=== PATIENT | female | born 1995 | race Caucasian/White ===

== ENCOUNTER 2020-07-22 23:58 | Emergency (ER) | payer OTHER ==
[~2020-07-22] VITALS: Ht 162.6 cm; Wt 70.4 kg
[2020-07-23] MEDS ORDERED: NS 1,000 ML IV ONE (00:15)
[2020-07-23 00:44] LABS: BASO # 0.1 10^3/uL (0.0-0.2); BASO % 0.6 % (0.0-1.0); EOS # 0.1 10^3/uL (0.0-0.5); EOS % 1.2 % (0.0-3.0); HEMATOCRIT 38.9 % (36.0-47.0); HEMOGLOBIN 12.8 g/dl (12.0-15.5); LYMPH # 2.7 10^3/uL (1.5-5.0); LYMPH % 29.7 % (24.0-44.0); MEAN CORPUSCULAR HGB CONC 32.9 g/dl (32.0-36.5); MONO # 0.6 10^3/uL (0.0-0.8); NEUTROPHILS # 5.6 10^3/uL (1.5-8.5); NEUTROPHILS % 61.2 % (36.0-66.0); PLATELET COUNT, AUTOMATED 302 10^3/uL (150-450); RED BLOOD COUNT 4.42 10^6/uL (4.00-5.40); WHITE BLOOD COUNT 9.1 10^3/uL (4.0-10.0)
[2020-07-23 00:47] LABS: APPEARANCE, URINE CLEAR (CLEAR); COLOR, URINE YELLOW (YELLOW)
[2020-07-23 00:48] LABS: BACTERIA, URINE AUTO 2+ (NEGATIVE); BILIRUBIN, URINE AUTO NEGATIVE (NEGATIVE); BLOOD, URINE BLOOD 2+ (NEGATIVE); GLUCOSE, URINE (UA) AUTO NEGATIVE (NEGATIVE); KETONE, URINE AUTO NEGATIVE (NEGATIVE); LEUKOCYTE ESTERASE, URINE AUTO NEGATIVE (NEGATIVE); NITRITE, URINE AUTO NEGATIVE (NEGATIVE); PROTEIN, URINE AUTO NEGATIVE (NEGATIVE); RBC, URINE AUTO 78 /HPF (0-3); SPECIFIC GRAVITY URINE AUTO 1.015 (1.002-1.035); SQUAMOUS EPITHELIAL CELL UR AU 0 /HPF (0-6); UROBILINOGEN, URINE AUTO 0.2 mg/dL (0.0-2.0); WBC, URINE AUTO 1 /HPF (0-3)
[2020-07-23 01:14] LABS: BLOOD UREA NITROGEN 12 MG/DL (7-18); CALCIUM LEVEL 8.6 MG/DL (8.5-10.1); CARBON DIOXIDE LEVEL 27 MEQ/L (21-32); CHLORIDE LEVEL 109 MEQ/L (98-107); CREATININE FOR GFR 0.67 MG/DL (0.55-1.30); GLOMERULAR FILTRATION RATE > 60.0 (>60); GLUCOSE, FASTING 83 MG/DL (70-100); HCG, SERUM QUANTITATIVE 306 MIU/ML; POTASSIUM SERUM 3.8 MEQ/L (3.5-5.1); SODIUM LEVEL 139 MEQ/L (136-145)
--- NOTE | 2020-07-23 01:40 | REPVR ---
PROCEDURE INFORMATION: Exam: US First Trimester, Transabdominal and US , Transvaginal Exam date and time: 07/23/2020 1:23 AM Age: 24 years old Clinical indication: Lmp or gestational age (in weeks): 06/14/20; Antepartum complications; Bleeding; ; Additional info: Vag bleed eval for iup TECHNIQUE: Imaging protocol: Real-time transabdominal obstetrical ultrasound of the maternal pelvis and a first trimester , less than 14 weeks 0 days, with image documentation. Transvaginal imaging was used for better evaluation of the fetus and adnexa. COMPARISON: No relevant prior studies available. FINDINGS: Gestation: No intrauterine gestation is visualized. MATERNAL: Uterus: Uterus measures 7.1 x 4.7 x 5.9 cm. Endometrium measures 7 mm. Cervix: Unremarkable. Right adnexa: Right ovary measures 3.4 x 1.7 x 2.6 cm. Right adnexal cystic lesion measuring 1.8 x 1.5 x 1.7 cm. Suspect paraovarian cyst. Left adnexa: Left ovary measures 2.6 x 1.6 x 1.9 cm. Left ovary appears within normal limits. Intraperitoneal space: Trace free fluid within the pelvis. IMPRESSION: 1. No intrauterine gestation is visualized. 2. Right adnexal cystic lesion measuring 1.8 cm, possible paraovarian cyst however ectopic is not excluded. Follow-up recommended. Electronically signed by: Julian Nesbitt On 07/23/2020 01:40:03 AM
[2020-07-23 02:12] LABS: CHLAMYDIA DNA AMPLIFICATION POSITIVE (NEGATIVE); GC DNA AMPLIFICATION POSITIVE (NEGATIVE)
[2020-07-23 02:30] VITALS: BP 127/75
[2020-07-23] MEDS ORDERED: cefTRIAXone SOD 250MG VIAL (J0696 PER 250MG) IM ONE (03:30)
[2020-07-23] MEDS ORDERED: AZITHROMYCIN 250MG TABLET PO ONE (03:30)
[2020-07-23] MEDS ORDERED: LIDOCAINE 1% SDV 5ML VIAL DILUENT ONE (03:30)
== END 2020-07-23 02:55 | disposition home or self-care (01) ==
LOC: M ED 23:58
DX: O20.0 Threatened abortion (principal); Z3A.01 Less than 8 weeks gestation of pregnancy
CPT/HCPCS: 76801; 76817; 80048; 81001; 84702; 85025; 86850; 87086; 87210; 87491; 87591; 93976; 96360; 96361; 96372; 99283; J0696

== ENCOUNTER → 2020-08-01 | Outpatient (CLI) | payer OTHER ==
--- NOTE | 2020-08-09 10:10 | REP ---
FIRST TRIMSTER ULTRASOUND CLINICAL: Follow-up presumed missed . COMPARISON: 07/23/2020. TECHNIQUE: Transabdominal and transvaginal first trimester obstetrical ultrasound with color Doppler evaluation. FINDINGS: Heterogeneous anteverted uterus measures 7.6 x 4.4 x 5.4 cm. The endometrial complex measures 6 mm thickness and without decidual reaction. Uterus appears unchanged compared to prior examination and no intrauterine is identified. The bilateral ovaries are normal in vascularity without torsion. The left ovary measures 2.5 x 1.5 x 1.5 cm. The right ovary measures 2.8 x 1.8 x 2.0 cm. A relatively simple right paraovarian cyst measuring 1.6 x 1.5 x 1.4 cm is again noted and essentially unchanged. IMPRESSION: * No evidence for intrauterine . * Right paraovarian cyst again noted and essentially unchanged. * Differential diagnosis cannot definitively exclude ectopic and correlation with serial hCG levels is recommended, as well as repeat ultrasound if necessary. MTDD
== END ==
LOC: M RAD 08:47
PROVIDERS: ATTEND Obstetrics & Gynecology
DX: O02.1 Missed abortion (principal)

== ENCOUNTER → 2020-08-20 | Outpatient (CLI) | payer OTHER | LOC: M LAB 09:08 | PROVIDERS: ATTEND Obstetrics & Gynecology | DX: O02.1 Missed abortion (principal) ==

== ENCOUNTER → 2021-01-03 | Outpatient (REF) | payer OTHER | LOC: M WUC 11:43 | PROVIDERS: ATTEND Physician Assistant | DX: R30.0 Dysuria (principal) ==

== ENCOUNTER 2021-01-28 17:30 | Emergency (ER) | payer OTHER ==
[~2021-01-28] VITALS: Ht 162.6 cm; Wt 72.7 kg
[2021-01-28] MEDS ORDERED: PRENTAB9 PO (17:57)
[2021-01-28] MEDS ORDERED: LIDOCAINE 1% SDV 5ML VIAL DILUENT ONE (19:40)
[2021-01-28] MEDS ORDERED: cefTRIAXone SOD 1GM VIAL (J0696 PER 250MG) IM ONE (19:40)
[2021-01-28] MEDS ORDERED: AZITHROMYCIN 250MG TABLET PO ONE (19:40)
[2021-01-28 19:53] VITALS: BP 114/68
== END 2021-01-28 20:17 | disposition home or self-care (01) ==
LOC: M ED 17:30
DX: Z20.2 Contact with and (suspected) exposure to infections with a predominantly sexual mode of transmission (principal)
CPT/HCPCS: 81001; 87490; 87590; 96372; 99284; J0696

== ENCOUNTER 2021-06-23 12:59 | Emergency (ER) | payer OTHER ==
[~2021-06-23] VITALS: Ht 162.6 cm; Wt 86.4 kg
[~2021-06-23 12:59] MED LIST: PRENTAB9 PO
[2021-06-23] MEDS ORDERED: FAMO1TAB11 (13:14)
[2021-06-23 14:46] VITALS: BP 120/73
--- NOTE | 2021-06-23 17:27 | ECGEPIP ---
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 Order Number: [id number] Reading MD: Kwabena Quiroga Measurements Intervals [place] Rate: 91 P: 44 IL: 132 QRS: 27 QRSD: 82 T: 44 QT: 380 QTc: 467 Interpretive Statements Sinus rhythm with frequent premature ventricular complexes Comparison tracing not on file Electronically Signed on 06-23-2021 17:26:46 EDT by Kwabena Quiroga
== END 2021-06-23 15:01 | disposition home or self-care (01) ==
LOC: M ED 12:59 → EDBD 12:59 → M ED 15:01
DX: R55 Syncope and collapse (principal); Z3A.30 30 weeks gestation of pregnancy; O10.013 Pre-existing essential hypertension complicating pregnancy, third trimester; Z79.899 Other long term (current) drug therapy

== ENCOUNTER 2021-08-20 10:44 | Inpatient (IN) | payer OTHER ==
[~2021-08-20] VITALS: Ht 162.6 cm; Wt 92.8 kg
[~2021-08-20 10:44] MED LIST changes: +FAMO1TAB11
[2021-08-20 11:08] VITALS: BP 128/74
[2021-08-20] MEDS ORDERED: VALT500T PO (11:11)
[2021-08-20] MEDS ORDERED: ACET325C5 PO (11:11)
[2021-08-20] MEDS ORDERED: HOME MED LIST COMPLETE! XX SCH (11:15)
[2021-08-20 11:33] VITALS: BP 119/64
[2021-08-20 13:31] VITALS: BP 120/75
[2021-08-20 15:31] VITALS: BP 118/68
[2021-08-20] MEDS ORDERED: LACTATED RINGER'S 1000 ML IV STA (15:39)
[2021-08-20] MEDS ORDERED: TRANEXAMIC ACID INJection 1,000 MG in NS 100 ML IV PRN (15:40)
[2021-08-20] MEDS ORDERED: OXYTOCIN INJ 10 UNITS/ML VIAL (J2590) IM PRN (15:40)
[2021-08-20] MEDS ORDERED: LIDOCAINE 1% MDV 20ML VIAL INFIL PRN (15:40)
[2021-08-20] MEDS ORDERED: OXYTOCIN INJ 10 UNITS/ML VIAL (J2590) IV PRN (15:40)
[2021-08-20] MEDS ORDERED: CARBOPROST TROMETHAMINE 250 MCG/ML AMP IM PRN (15:40)
[2021-08-20] MEDS ORDERED: METHYLERGONOVINE MALEATE 0.2 MG/ML VIAL (J2210) IM PRN (15:40)
[2021-08-20] MEDS ORDERED: OXYTOCIN DRIP 30 UNITS in IV 1 EA IV PRN ×6 (15:40)
[2021-08-20] MEDS ORDERED: LR 1,000 ML IV SCH (15:40)
[2021-08-20] MEDS ORDERED: OXYTOCIN DRIP 30 UNITS in IV 1 EA IV SCH ×2 (15:40→23:45)
--- OUTSIDE RECORDS SUMMARY | 2021-08-20 16:02 | CCD | Continuity of Care Document ---
Author Author Lyubov HANKS Organization Unknown Address [address] [place] [address] [place] [address] Phone [phone] Care Team Providers Care Head Loader Name Role Phone Tadeo Miller MD AUTM Unavailable [facility] AUTM Problems Description No Information Available Social History Type Date Description Comments Sex Unknown Tobacco Use Start: Unknown Never Smoked Cigarettes ETOH Use Denies alcohol use Allergies, Adverse Reactions, Alerts Description No Known Drug Allergies Medications Active Medications SIG Qnty Indications Ordering Provide r Date Mvi Unknown Unknown History Medications Cephalexin 500mg Tablets 1 tab by mouth q12 hours for 7 days 14tabs Saeed Dennis JR. 01/05/2021 - 01/12/2021 Immunizations Description No Information Available Vital Signs Date Vital Result Comment 01/03/2021 9:16am BP Systolic 113 mmHg BP Diastolic 75 mmHg Heart Rate 86 /min Respiratory Rate 14 /min O2 % BldC Oximetry 98 % Body Temperature 97.7 F Weight 160.00 lb Height 64 inches 5'4" BMI (Body Mass Index) 27.5 kg/m2 Pain Level 2 12/20/2020 6:50pm BP Systolic 110 mmHg BP Diastolic 68 mmHg Heart Rate 78 /min Respiratory Rate 16 /min O2 % BldC Oximetry 99 % Body Temperature 98.6 F Weight 160.00 lb Height 64 inches 5'4" BMI (Body Mass Index) 27.5 kg/m2 Pain Level 0 Results Test Acquired Date Facility Test Result H/L Range Note Laboratory test finding 01/03/2021 [facility] [address] [place], [place] [id number] [phone] Urine Culture FULL REPORT IN L <SEE NOTE> Normal 1, 2 Laboratory test finding 01/03/2021 [facility] [address] [place] [address] [phone] Trichomonas Vaginalis Amp NOT DETECTED Normal Neg ative 3 1 FULL REPORT IN LAB NOTES ([facility] and [facility]). ORGANISM 1: STREP AGALACTIAE GROUP B COLONY COUNT >100,000 ORGANISM 1: STREP AGALACTIAE GROUP B STREP AGALACTIAE GROUP B: REACTION ICR (INDUCIBLE CC RESISTANCE) IV ICR TEST RESULT TETRACYCLINE PO 250 mg qid >=16 R PENICILLIN G IV 1 mu q6h <=0.06 S PENICILLIN G PO 250mg q6h fasting <=0.06 S AMPICILLIN IV 500mg q6h <=0.25 S AMPICILLIN PO 500mg q6h fasting <=0.25 S ERYTHROMYCIN IV 500mg q6h >=8 R ERYTHROMYCIN PO 500mg q6h >=8 R LEVOFLOXACIN IV 500mg qd 1 S LEVOFLOXACIN PO 250mg qd 1 S LEVOFLOXACIN PO 500mg qd 1 S VANCOMYCIN IV 500mg q8h 0.5 S MOXIFLOXACIN (AVELOX) IV 400MG QD 0.12 S MOXIFLOXACIN (AVELOX) PO 400MG QD 0.12 S CEFTRIAXONE IV 1gm q24h <=0.12 S CEFOTAXIME IV 1gm q8h <=0.12 S An isolate with a (+) POSITIVE ICR test is considered CLINDAMYCIN RESISTANT; however, clindamycin may still be effective in some patients. An isolate with a (-) NEGATIVE ICR test is considered CLIDAMYCIN SENSITIVE. 2 01/05/21 ([place] Jan 05) 08:15 AM MALATHI MATHUR Patient started on cephalexin- see triage. 3 A negative test result does not exclude the possibility of infection because test results may be affected by improper specimen collection, technical error, sample mix-up, or because the number of organisms in the sample is below the limit of detection of the test. Procedures Date Code Description Status 01/03/2021 [address]3333 Office/Outpatient Established Lo w MDM 20-29 Min Completed Medical Devices Description No Information Available Encounters Type Date Location Provider Dx Diagnosis Office Visit 01/03/2021 8:45a Main Office NEVA Hastings R30 .0 Dysuria Assessments Date Code Description Provider 01/03/2021 R30.0 Dysuria NEVA Pruett Plan of Treatment No Information Available Functional Status Description No Information Available Mental Status Description No Information Available Referrals Refer to Reason for Referral Status Appt Date Anupam Cole PA Created [facility] [address] [place] [address] [phone] Anupam Cole PA Created [facility] [address] [place] [address] [phone]
--- OUTSIDE RECORDS SUMMARY | 2021-08-20 16:02 | CCD | Continuity of Care Document ---
Author Author Lyubov HANKS Organization Unknown Address [address] [place] [address] [place] [address] Phone [phone] Care Team Providers Care Cold Roll Operator Name Role Phone Tadeo Miller MD AUTM Unavailable [facility] AUTM Problems Description No Information Available Social [...] H/L Range Note Laboratory test finding 01/03/2021 [facility] [address] [place], [place] [id number] [phone] Urine Culture FULL REPORT IN L <SEE NOTE> Normal 1, 2 Laboratory test finding 01/03/2021 [facility] [address] [place] [address] [phone] Trichomonas Vaginalis Amp NOT DETECTED Normal Neg [...] test is considered CLIDAMYCIN SENSITIVE. 2 01/05/21 ([place] Jan 05) 08:15 AM MALATHI MATHUR Patient started on cephalexin- see triage. 3 A negative test result does not exclude the possibility of infection because test results may be affected by improper specimen collection, technical error, sample mix-up, or because the number of organisms in the sample is below the limit of detection of the test. Procedures Date Code Description Status 01/03/2021 [address]3882 Office/Outpatient Established Lo w MDM 20-29 Min Completed Medical Devices Description No Information Available Encounters Type Date Location Provider Dx Diagnosis Office Visit 01/03/2021 8:45a Main Office NEVA Hastings R30 .0 Dysuria Assessments Date Code Description Provider 06/30/2021 Z20.828 Contact with and (thomas spected) exposure to other viral communicable diseases Erick Jameson 01/03/2021 R30.0 Dysuria NEVA Pruett Plan of Treatment No Information Available Functional Status Description No Information Available Mental Status Description No Information Available Referrals Refer to Dr Reason for Referral Status Appt Date Anupam Cole PA Created [facility] [address] [place] [address] [phone] Anupam Cole PA Created [facility] [address] [place] [address] [phone]
--- OUTSIDE RECORDS SUMMARY | 2021-08-20 16:02 | CCD ---
Author Author [facility] Organization [facility] Address Unknown Phone Unavailable Care Team Providers Care Acid Conditioning Worker Name Role Phone ROSE, Lise HOOKS Unavailable Unavailable LETTIERE, Lise ARROYO PA Unavailable Unavailable LETTIERE, A DINA PA Unavailable Unavailable LETTIERE, Lise ARROYO PA Unavailable Unavailable LETTIERE, Lise ARROYO PA Unavailable Unavailable LETTIERE, Lise ARROYO PA Unavailable Unavailable LETTIERE, Lise ARROYO PA Unavailable Unavailable LETTIERE, Lise ARROYO PA Unavailable Unavailable LETTIERE, A DINA PA Unavailable Unavailable LETTIERE, A DINA PA Unavailable Unavailable LETTIERE, Lise ARROYO PA Unavailable Unavailable LETTIERE, Lise ARROYO PA Unavailable Unavailable LETTIERE, Lise ARROYO PA Unavailable Unavailable LETTIERE, Lise ARROYO PA Unavailable Unavailable LETTIERE, A DINA PA Unavailable Unavailable LETTIERE, A DINA PA Unavailable Unavailable LETTIERE, A DINA PA Unavailable Unavailable LETTIERE, A DINA PA Unavailable Unavailable LETTIERE, Lise ARROYO PA Unavailable Unavailable LETTIERE, A DINA PA Unavailable Unavailable LETTIERE, A DINA PA Unavailable Unavailable LETTIERE, A DINA PA Unavailable Unavailable LETTIERE, A DINA PA Unavailable Unavailable LETTIERE, A DINA PA Unavailable Unavailable LETTIERE, A DINA PA Unavailable Unavailable LETTIERE, Lise ARROYO PA Unavailable Unavailable LETTIERE, Lise ARROYO PA Unavailable Unavailable LETTIERE, Lise ARROYO PA Unavailable Unavailable LETTIERE, Lise ARROYO PA Unavailable Unavailable LETTIERE, A DINA PA Unavailable Unavailable LETTIERE, Lise ARROYO PA Unavailable Unavailable Gracia, Veronica HOOKS Unavailable Unavailable GraciaVeronica Unavailable Unavailable Gracia, Veronica HOOKS Unavailable Unavailable Gracia, Veronica Rodriguezlyn PA Unavailable Unavailable Gracia, Veronica Hathawayn PA Unavailable Unavailable Gracia, Veronica Rodriguezlyn PA Unavailable Unavailable Gracia, Veronica Rodriguezlyn PA Unavailable Unavailable Gracia, Veronica Rodriguezlyn PA Unavailable Unavailable Gracia, Veronica Rodriguezlyn PA Unavailable Unavailable Gracia, Veronica Hathawayn PA Unavailable Unavailable Re-disclosure Warning The records that you are about to access may contain information from federally-assisted alcohol or drug abuse programs. If such information is present, then the following federally mandated warning applies: This information has been disclosed to you from records protected by federal confidentiality rules (42 CFR part 2). The federal rules prohibit you from making any further disclosure of this information unless further disclosure is expressly permitted by the written consent of the person to whom it pertains or as otherwise permitted by 42 CFR part 2. A general authorization for the release of medical or other information is NOT sufficient for this purpose. The Federal rules restrict any use of the information to criminally investigate or prosecute any alcohol or drug abuse patient.The records that you are about to access may contain highly sensitive health information, the redisclosure of which is protected by Article 27-F of the [facility] Public Health law. If you continue you may have access to information: Regarding HIV / AIDS; Provided by facilities licensed or operated by the [facility] Office of Mental Health; or Provided by the [facility] Office for People With Developmental Disabilities. If such information is present, then the following [facility] mandated warning applies: This information has been disclosed to you from confidential records which are protected by state law. State law prohibits you from making any further disclosure of this information without the specific written consent of the person to whom it pertains, or as otherwise permitted by law. Any unauthorized further disclosure in violation of state law may result in a fine or long term sentence or both. A general authorization for the release of medical or other information is NOT sufficient authorization for further disc losure. Encounters Encounter Providers Location Date Indications Data Source(s ) Outpatient Attender: DINA Moses Prim rajni 01/03/2021 07:45:00 AM EST [facility] Outpatient Attender: Nasrin Moses Prim rajni 12/20/2020 04:40:00 PM EST [facility] ([facility]) Medications Medication Brand Name Start Date Product Form Dose Route Admi nistrative Instructions Pharmacy Instructions Status Indications Reaction Description Data Source(s) Cephalexin 500 MG Oral Tablet Cephalexin 01/05/2021 12:00:00 AM EST ORAL completed [facility] ([facility]) Insurance Providers Payer name Policy type / Coverage type Policy ID Covered constitution party ID Covered constitution party's relationship to roberson Policy [place] Plan Information [facility] ACTIVE DUTY [id number] SP [id number] [employer] [facility] REG O [id number] S [id number] Problems, Conditions, and Diagnoses No Information Surgeries/Procedures Procedure Description Date Indications Data Source(s) OFFICE OUTPATIENT VISIT 15 MINUTES 01/03/2021 12:00:00 AM EST [facility] ([facility]) Results ID Date Data Source [id number] 06/30/2021 12:00:00 AM EDT [facility] Name Value Range Interpretation Code Description Data Nelsy rce(s) Supporting Document(s) SARS-CoV2 Rapid Antigen Negative [facility] This lab was ordered by [facility] and reported by [facility]. ID Date Data Source [id number] 03/19/2021 09:35:00 AM EDT [facility] Name Value Range Interpretation Code Description Data Nelsy rce(s) Supporting Document(s) SARS coronavirus 2 RNA Not Detected [facility] This lab was ordered by [facility] and reported by [facility]. ID Date Data Source [id number] 01/03/2021 09:22:00 AM EST [facility] ([facility]) Name Value Range Interpretation Code Description Data Nelsy rce(s) Supporting Document(s) Trichomonas vaginalis rRNA [Presence] in Unspecified specimen by Probe and target amplification method Laboratory test result [facility] ([facility]) A negative test result does not exclude the possibility of infection because test results may be affected by improper specimen collection, technical error, sample mix-up, or because the number of organisms in the sample is below the limit of detection of the test. ID Date Data Source [id number] 01/03/2021 09:22:00 AM EST [facility] ([facility]) Name Value Range Interpretation Code Description Data Nelsy rce(s) Supporting Document(s) Bacteria identified in Urine by Culture Laboratory test result [facility] ([facility]) <content>FULL REPORT IN LAB NOTES ([facility] a nd [facility]).</content>
<content></content>
<content>ORGANISM 1: STREP AGALACTIAE GROUP B</content>
<content></content>
<content>COLONY COUNT >100,000</content>
<content></content>
<content></content>
<content> ORGANISM 1: STREP AGALACTIAE GROUP B</content>
<content></content>
<content>STREP AGALACTIAE GROUP B: REACTION</content>
<content>ICR (INDUCIBLE CC RESISTANCE) IV ICR TEST RESULT</content>
<content>TETRACYCLINE PO 250 mg qid >=16 R</content>
<content>PENICILLIN G IV 1 mu q6h <=0.06 S</content>
<content>PENICILLIN G PO 250mg q6h fasting <=0.06 S</content>
<content>AMPICILLIN IV 500mg q6h <=0.25 S</content>
<content>AMPICILLIN PO 500mg q6h fasting <=0.25 S</content>
<content>ERYTHROMYCIN IV 500mg q6h >=8 R</content>
<content>ERYTHROMYCIN PO 500mg q6h >=8 R</content>
<content>LEVOFLOXACIN IV 500mg qd 1 S</content>
<content>LEVOFLOXACIN PO 250mg qd 1 S</content>
<content>LEVOFLOXACIN PO 500mg qd 1 S</content>
<content>VANCOMYCIN IV 500mg q8h 0.5 S</content>
<content>MOXIFLOXACIN (AVELOX) IV 400MG QD 0.12 S</content>
<content>MOXIFLOXACIN (AVELOX) PO 400MG QD 0.12 S</content>
<content> CEFTRIAXONE IV 1gm q24h <=0.12 S</content>
<content>CEFOTAXIME IV 1gm q8h <=0.12 S</content>
<content>An isolate with a (+) POSITIVE ICR test is considered</content>
<content>CLINDAMYCIN RESISTANT; however, clindamycin may still</content>
<content>be effective in some patients.</content>
< content>An isolate with a (-) NEGATIVE ICR test is considered</content>
<content>CLIDAMYCIN SENSITIVE.</content>
<content></content> Procedure Social History No Information Vital Signs ID Date Data Source UNK Name Value Range Interpretation Code Description Data Source(s) Body height 64 [in_i] 64 [in_i] [facility] ([facility]) 5'4" Body mass index (BMI) [Ratio] 27.5 kg/m2 27.5 k g/m2 [facility] ([facility]) Systolic blood pressure 113 mm[Hg] 113 mm[Hg] M [facility] ([facility]) Diastolic blood pressure 75 mm[Hg] 75 mm[Hg] [facility] ([facility]) Heart rate 86 /min 86 /min [facility] ([facility]) Respiratory rate 14 /min 14 /min [facility] ( [facility]) Oxygen saturation in Arterial blood by Pulse oximetry 98 % 98 % [facility] ([facility]) Body temperature 97.7 [degF] 97.7 [degF] [facility] ([facility]) Body weight 160.00 [lb_av] 160.00 [lb_av] [facility] ([facility]) Respiratory rate 16 /min 16 /min [facility] ( [facility]) Oxygen saturation in Arterial blood by Pulse oximetry 99 % 99 % [facility] ([facility]) Body temperature 98.6 [degF] 98.6 [degF] [facility] Body weight 160.00 [lb_av] 160.00 [lb_av] [facility] ([facility]) Body height 64 [in_i] 64 [in_i] [facility]) 5'4" Body mass index (BMI) [Ratio] 27.5 kg/m2 27.5 k g/m2 [facility] ([facility]) Systolic blood pressure 110 mm[Hg] 110 mm[Hg] [facility]) Diastolic blood pressure 68 mm[Hg] 68 mm[Hg] [facility] ([facility]) Heart rate 78 /min 78 /min [facility] ([facility])
[2021-08-20 16:31] LABS: HEMATOCRIT 34.5 % (36.0-47.0); HEMOGLOBIN 11.2 g/dl (12.0-15.5); MEAN CORPUSCULAR HEMOGLOBIN 26.3 pg (27.0-33.0); MEAN CORPUSCULAR HGB CONC 32.5 g/dl (32.0-36.5); PLATELET COUNT, AUTOMATED 257 10^3/uL (150-450); RED BLOOD COUNT 4.26 10^6/uL (4.00-5.40); WHITE BLOOD COUNT 9.7 10^3/uL (4.0-10.0)
[2021-08-20 16:41] VITALS: BP 135/60
[2021-08-20] MEDS: FLUCONAZOLE 50MG TABLET PO SCH (17:15)
--- NOTE | 2021-08-20 17:36 | HPEPDOC ---
Obstetrical History & Physical General Date of Admission Aug 20, 2021 at 15:55 History of Present Illness The patient is a 25 year old at 39 week and 1D gestation by LMP c/w 8week ultrasound admitted in active labor after presenting for leakage of fluids at home. SROM Check was negative, but patient was found to be 5cm dilated and 2 hrs later had cervical change to 6cm. patient was also noted to have a yeast i nfection her Spec exam did not reveal any HSV lesions and she denies any prodromal syndrome. Care Care: Good Care Dating Final EDC: Aug 26, 2021 Final EDC by: LMP LMP: Nov 19, 2020 Estimated Date of Confinement: Aug 26, 2021 EGA at Admission: 39 (39+1) Antepartum Course Diagnos(e)s 1. 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 HX GTHN- michele BP on admission 3. Gonorrhea in 1T, Neg REED 4. Excessive weight gain in , #54LB Height (inches): 64 Pre- weight (lbs.): 150 Admission Weight (lbs.): 204 Change in Weight (lbs.): 54 Past Medical History Past Obstetrical History : Past Obstetrical History: Multigravida Weight of Infant (grams): 6 ([id number]) LEAD LOADER History: No pertinent history Past Medical History Surgical History: Denies/None Family History Significant Family History: No pertinent family hx Social History Marital Status: Psychosocial History: No pertinent psych hx * Smoker: non-smoker Alcohol: Denies Abuse Violence Screening Have you been hit/kicked/slapp: No Have you been sexually assault: No Imunizations Tdap status: current Allergies Coded Allergies: No Known Allergies (Unverified , 07/23/20) Medications Scheduled No.137/Iron/Folic Acd ( Vitamin Tablet) 1 Each Tablet, 1 TAB PO DAILY Valacyclovir HCl (Valtrex) 500 Mg Tablet, 500 MG PO BID Scheduled PRN Acetaminophen (Tylenol) 325 Mg Capsule, 500 MG PO for PAIN LEVEL 1-4 Miscellaneous Medications Famotidine (Famotidine) 20 Mg Tablet Physical Examination Physical Examination GENERAL: Alert and oriented times three. BREAST: . ABDOMEN: Gravid and non-tender to touch. FETUS: Is vertex (VTX) by sterile vaginal examination (SVE) and TAUS HEART RATE: Regular rate and rhythm. LUNGS: NORMAL WORK OF BREATHING EXTREMITIES: No edema. SVE: /-1, SSPE- negative Vital Signs/I&O Vital Signs Date Time Temp Pulse Resp B/P (MAP) Pulse Ox O2 Delivery O2 Flow Rate FiO2 08/20/21 13:31 88 16 120/75 (90) 08/20/21 11:08 98.5 97 Laboratory Data 24H LABS Laboratory Tests 2 08/20/21 16:07: Serology Scanned Report Hepatitis B Testing 08/20/21 16:13: Nucleated Red Blood Cells % (auto) 0.0 08/20/21 16:28: CBC/BMP Laboratory Tests 08/20/21 16:13 Pertinent Laboratoy Data Blood Type: A+ RBC Antibody Screen: Negative HIV: Unknown Hepatitis B: Negative Hepatitis C: Unknown Rapid Plasma Reagin: Nonreactive Rubella: Immune Varicella: Immune Chlamydia/Gonorrhea: Positive (hag neg reed) Group B Streptococcus: Negative Quad Screen Test: Negative Cystic Fibrosis: Unknown Glucose Tolerance Test: 100 Anatomy Ultrasound Placenta Location: Anterior Normal Anatomy: Yes Placenta Previa: No Assessment Heart Rate (FHR): 150 Variability: Moderate Accelerations: Positive Decelerations: None Tocometer Frequency: irregular Strength: palpated as mild Multi-drug resistant Organism: No history of MDRO Assessment/Plan Assessment Assessment: The patient is a 25 year old at 39 week and 1D gestation by LMP c/w 8week ultrasound admitted in active labor after presenting for leakage of fluids at home. SROM Check was negative, but patient was found to be 5cm dilated and 2 hrs later had cervical change to 6cm. Pelvis proven to6lbs 8oz. Pelvis Adequate for labor. Category I FHRT. APC: 1. 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 HX GTHN- michele BP on admission 3. Gonorrhea in 1T, Neg REED 4. Excessive weight gain in , #54LB SVE: /-1 GBS Neg Cephalic by US EFW 3700g RH POS Placenta anterior placenta Plan Plan: - Admit to L&D. - Consent obtained - CBC with type and screen. - EFM x 2 - Anesthesia to see, patient wants epidural - Risks of augmentation with Pitocin discussed with patient. Labor and Delivery Counseling We will deliver your baby through the vagina with possible assistance of forceps or vacuum device if needed for maternal or indications. Forceps and vacuum are devices that can assist with vaginal delivery when normal pushing efforts cannot achieve delivery on their own or when delivery is needed in an emergency for baby's well-being. Medications may be required to induce or augment (help) your labor in order to achieve a vaginal delivery. An episiotomy may be required to help your baby to delivery vaginally. You may also require repair of any lacerations or tears of your vagina or vulva that are caused by delivery. In some cases, emergencies can occur that require an emergency section delivery so quickly that there may not be enough time to stop and complete consent forms for section. Understand that if this occurs, your providers will discuss the need for a section with you before they proceed with surgery. section is the delivery of your baby through an incision in your abdomen. In some situations, section may be safer to mom and baby than continuing labor and is only performed when clinically indicated. Risks of vaginal delivery include but are not limited to: Bleeding, infection, injury to the vagina, pelvic structures, injury to baby, damage to the uterus, reactions to anesthesia, uterine rupture, risk of hysterectomy for life threatening bleeding, or . Medications used to induce or augment labor may increase your risk for infection, uterine tachysystole, uterine rupture, heart rate abnormalities, need for emergency delivery or possible hysterectomy, and hemorrhage. Additional risks for use of forceps and vacuum include: increased risk of perineal and vaginal lacerations, risk of urinary or bowel incontinence, increased risk of injury to baby with bruising, scratches, hematomas on the head, or intracranial bleeding. ABIODUN COPELAND MD Aug 20, 2021 17:09
[2021-08-20 18:18] VITALS: BP 131/70
--- NOTE | 2021-08-20 21:14 | IPNPDOC ---
Obstetrical Progress Note Date of Service Aug 20, 2021 Subjective TO ROOM FOR ASSESSMENT Patient comfortable in bed. FHT: 140, Mod jasmin,+accels, -Decels, cat I tracing sve: /-1, arom clear fluids [place]: Irregular A/P Admitted in active labor but has now stallled. AROM With clear fluids. can see in contractions pick if not will start pit in one hours. anticipate . Objective Vital Signs Date Time Temp Pulse Resp B/P (MAP) Pulse Ox O2 Delivery O2 Flow Rate FiO2 08/20/21 18:18 98.1 105 18 131/70 (90) 08/20/21 11:08 97 ABIODUN COPELAND MD Aug 20, 2021 21:14
[2021-08-20] MEDS ORDERED: FENTANYL 2MCG/ML ROPIVACAINE 0.2% IN 0.9% NACL 100ML IVBAG As Ordered ONE (22:01)
[2021-08-20] MEDS ORDERED: NALOXONE INJ 0.4MG/1ML VIAL (J2310 PER 1MG) IV PRN (22:47)
[2021-08-20] MEDS ORDERED: EPIDURAL COMMENT XX SCH (22:47)
[2021-08-20] MEDS ORDERED: ONDANSETRON 4MG/2ML VIAL IV PRN ×2 (22:47→23:45)
[2021-08-20] MEDS ORDERED: LACTATED RINGER'S 1000 ML IV PRN (22:47)
[2021-08-20] MEDS ORDERED: FENTANYL/ROPIVACAINE/NACL BAG 100 ML EPIDURAL SCH (22:47)
[2021-08-20] MEDS ORDERED: ePHEDrine SULFATE 25 MG/5 ML(5MG/ML) SYRINGE IV PRN (22:47)
[2021-08-20] MEDS ORDERED: REFRIGERATOR IV KEYS XX PRN (22:47)
[2021-08-20] MEDS ORDERED: diphenhydrAMINE 50MG/ML VIAL (J1200) IV PRN (22:47)
[2021-08-20] MEDS ORDERED: EPIDURAL/PCA KEYS XX PRN (22:47)
[2021-08-20] MEDS ORDERED: DOCUSATE SODIUM 100MG CAPSULE PO PRN (23:45)
[2021-08-20] MEDS ORDERED: DIBUCAINE 1% OINTMENT 30GM TOP PRN (23:45)
[2021-08-20] MEDS ORDERED: ACETAMINOPHEN 500 MG TAB PO PRN (23:45)
[2021-08-20] MEDS ORDERED: IBUPROFEN 800 MG TAB PO PRN (23:45)
[2021-08-20] MEDS ORDERED: MOM 30ML SUSPENSION UDC PO PRN (23:45)
--- NOTE | 2021-08-20 23:48 | DNPDOC ---
[facility] Delivery Note Delivery Note DATE OF DELIVERY: 08/20/2021 PREDELIVERY DIAGNOSIS: 39W1/7 weeks' gestation and labor. POST DELIVERY DIAGNOSIS: Delivered. PROCEDURE: Spontaneous vaginal delivery ANESTHESIA ATTENDING: Abilio Mckinley MD ANESTHESIA: EPIDURAL ESTIMATED BLOOD LOSS: 100 mL. FINDINGS: 7 pound 14 ounce, 3570g male infant, Score 9/9, nuchal cord times x1, left compound hand. DELIVERY SUMMARY: Patient is a 25-year-old 3 now para 2012 who was ad mitted to labor and delivery in active labor at term. She progressed to C/C/+2 and with good maternal effort delivered a viable infant. The infants head delivered OA and the head was allowed to spontaneously restitute LYUDMILA. tight nuchal cord noted and delivered through and left compound hand. anterior shoulders delivered with gentle downward traction followed by posterior shoulder and corpus without difficulty. Normal 3-vessel cord clamped x 2 and cut by FOB after 1 minute of delayed cord clamping. Spontaneous cry noted. placed on maternal abdomen for [id number] Cord blood obtained. Placenta delivered spontaneously and inspection of the placenta demonstrated that it was intact. The cord insertion appeared normal. The uterus was cleared of all clots and debris. Fundal massage until firm. 30 units of Pitocin administered per protocol and the patient required no additional uterotonics. Inspection of cervix, perineum, and vaginal wall revealed no laceration. . Repeat uterine examination noted uterine tone to be adequate and firm. Mom and infant stayed in L&D in hemodynamic stable condition upon my departure. Sponge, lap and needle count correct x 2. SHANTEL COPELAND Staff ABIODUN COPELAND MD Aug 20, 2021 23:48
[2021-08-21 02:15] VITALS: BP 121/65
[2021-08-21 06:00] VITALS: BP 134/75
--- NOTE | 2021-08-21 07:07 | IPNPDOC ---
Progress Note Date of Service: Aug 21, 2021 Day#: 1 Progress Note SUBJECT: Patient is a 25-year-old 3 now para 2011 PPD1 S/P at term after being admitted to labor and delivery in active labor at term. she delivered a 7 pound 14 ounce, 3570g male , Score 9/9, nuchal cord times x1, left compound hand. She has been ambulating, voiding spontaneously without issue and tolerating regular diet. Breast feeding without issue. Reports lochia is minimal. OBJECTIVE: VITAL SIGNS: Within normal limits, afebrile. Alert and oriented times three. Normal work of breathing Heart rate: Regular rate and rhythm, Abdomen: Fundus firm at U-2. ASSESSMENT:Patient is a 25-year-old 3 now para 2011 PPD1 S/P at term after being admitted to labor and delivery in active labor at term. she delivered a 7 pound 14 ounce, 3570g male , Score 9/9, nuchal cord times x1, left compound hand. . Vitals within normal limits, afebrile, hemodynamically stable with no evidence of infection. PLAN: 1. Discharge to home tomorrow. 2. Tylenol and Motrin for pain. 3. Encourage breast feeding and ambulation. 4. IUD at 6 weeks ( discussed difference in Mirena AND Paragard, leaning toward paragard) 5. Routine PP visit in 6 weeks in clinic. 6. Discussed return precautions at length. VS, I&O, 24H, Fishbone Vital Signs/I&O Vital Signs Date Time Temp Pulse Resp B/P (MAP) Pulse Ox O2 Delivery O2 Flow Rate FiO2 08/21/21 06:00 97.9 86 17 134/75 (94) 96 Room Air I&O- Last 24 Hours up to 6 AM 08/21/21 06:00 Intake Total 1080 ml Output Total 100 ml Balance 980 ml Laboratory Data 24H LABS Laboratory Tests 2 08/20/21 16:07: Serology Scanned Report Hepatitis B Testing 08/20/21 16:13: Nucleated Red Blood Cells % (auto) 0.0, Syphilis Serology NONREACTIVE 08/20/21 16:28: Coronavirus (COVID-19)(PCR) NEGATIVE CBC/BMP Laboratory Tests 08/20/21 16:13 ABIODUN COPELAND MD Aug 21, 2021 07:07
[2021-08-21] MEDS: PRENATAL VITAMINS CHEWABLE TABLET PO SCH (09:27)
[2021-08-21] MEDS: FLUCONAZOLE 50MG TABLET PO SCH (09:28)
[2021-08-21 18:00] VITALS: BP 125/73
[2021-08-22 06:00] VITALS: BP 125/81
--- NOTE | 2021-08-22 06:51 | IPNPDOC ---
Progress Note Date of Service: Aug 22, 2021 Progress Note SUBJECT: Patito Gutierrez is a 25-year-old 3 now Para 2012 status post uncomplicated spontaneous vaginal delivery at 39+1 weeks' at on [id number] of a male 7 pounds 14 ounces (3570 grams) with doing well day # 2. She has been ambulating, voiding spontaneously without issue and tolerating regular diet. Breast feeding without issue. Reports lochia is like a normal period. Patient is ambulating well. OBJECTIVE: VITAL SIGNS: Within normal limits, afebrile. Alert and oriented times three. Breath sounds clear to auscultation. Heart rate: Regular rate and rhythm, no murmurs, rubs or gallops. Abdomen: Fundus firm at U-2. Soft, NTTP. Negative calf tenderness bilaterally ASSESSMENT: doing well on day 2. Vitals within normal limits, afebrile, hemodynamically stable with no evidence of infection. PLAN: 1. Discharge to home today. 2. Tylenol and Motrin for pain. 3. Encourage breast feeding and ambulation. 4. Desires MIrena IUD at 6 weeks 5. Routine PP visit in 6 weeks in clinic. 6. Discussed return precautions at length. VS, I&O, 24H, Fishbone Vital Signs/I&O Vital Signs Date Time Temp Pulse Resp B/P (MAP) Pulse Ox O2 Delivery O2 Flow Rate FiO2 08/22/21 06:00 97.0 61 20 125/81 (96) 99 Room Air CAMRON TORO DO Aug 22, 2021 06:42
[2021-08-22] MEDS ORDERED: IBUP80TA PO (06:55)
[2021-08-22] MEDS ORDERED: DOCU100C16 PO (06:55)
[2021-08-22] MEDS: PRENATAL VITAMINS CHEWABLE TABLET PO SCH (08:29)
[2021-08-22] MEDS ORDERED: INFLUENZA QUADRIVALENT PF VACCINE 0.5ML SYRINGE IM ONE (09:00)
[2021-08-22] MEDS: FLUCONAZOLE 50MG TABLET PO SCH (09:00)
== END 2021-08-22 16:55 | disposition home or self-care (01) | DRG 807 ==
LOC: M LDO 10:44 → M LDI 15:55 → M OBS 08-21 02:08
PROVIDERS: ADMIT Obstetrics & Gynecology; ATTEND Obstetrics & Gynecology
PROC: 10E0XZZ Delivery of Products of Conception, External Approach (ICD-10-PCS; principal; 2021-08-20)
PROC: 10907ZC Drainage of Amniotic Fluid, Therapeutic from Products of Conception, Via Natural or Artificial Opening (ICD-10-PCS; 2021-08-20)
DX: O98.32 Other infections with a predominantly sexual mode of transmission complicating childbirth (principal); Z37.0 Single live birth; A60.09 Herpesviral infection of other urogenital tract; Z3A.39 39 weeks gestation of pregnancy; O69.2XX0 Labor and delivery complicated by other cord entanglement, with compression, not applicable or unspecified; O32.6XX0 Maternal care for compound presentation, not applicable or unspecified

== ENCOUNTER 2021-08-23 20:23 | Inpatient (IN) | payer OTHER ==
[~2021-08-23] VITALS: Ht 162.6 cm; Wt 89.8 kg
[~2021-08-23 20:23] MED LIST changes: +ACET325C5 PO; +DOCU100C16 PO; +IBUP80TA PO; +VALT500T PO
--- OUTSIDE RECORDS SUMMARY | 2021-08-23 20:34 | CCD ---
Author Author [facility] Organization [facility] Address Unknown Phone Unavailable Care Team Providers [facility] Director Name Role Phone ROSE, Lise HOOKS Unavailable [...] Gracia, Veronica Hathawayn PA Unavailable Unavailable Gracia, Veroinca Rodriguezlyn PA Unavailable Unavailable Gracia, Veronica Rodriguezlyn [...] is protected by Article 27-F of the [facility] Public Health law. If you continue you may have access to information: Regarding HIV / AIDS; Provided by facilities licensed or operated by the [facility] Office of Mental Health; or Provided by the [facility] Office for People With Developmental Disabilities. If such information is present, then the following [facility] mandated warning applies: This information has been [...] law may result in a fine or senior living sentence or both. A general authorization for the release of medical or other information is NOT sufficient authorization for further disc losure. Encounters Encounter Providers Location Date Indications Data Source(s ) Outpatient Attender: DINA Moses Prim rajni 01/03/2021 07:45:00 AM EST [facility] ([facility], [facility]) Outpatient Attender: Nasrin Moses Prim rajni 12/20/2020 04:40:00 PM EST [facility] ([facility], [facility]) Medications Medication Brand Name Start Date Product Form Dose Route Admi nistrative Instructions Pharmacy Instructions Status Indications Reaction Description Data Source(s) Cephalexin 500 MG Oral Tablet Cephalexin 01/05/2021 12:00:00 AM EST ORAL completed [facility] ([facility], [facility]) Insurance Providers Payer name Policy type / Coverage type Policy ID Covered green party ID Covered green party's relationship to roberson Policy [place] Plan Information [facility] ACTIVE DUTY [id number] SP [id number] [employer] [facility] REG O [id number] S [id number] Problems, Conditions, and Diagnoses No Information Surgeries/Procedures Procedure Description Date Indications Data Source(s) OFFICE OUTPATIENT VISIT 15 MINUTES 01/03/2021 12:00:00 AM EST [facility] ([facility], [facility]) Results ID Date Data Source [id number] 08/20/2021 04:28:00 PM EDT [facility] Name Value Range Interpretation Code Description Data Nelsy rce(s) Supporting Document(s) SARS coronavirus 2 RNA [Presence] in Res piratory specimen by ELISABETH with probe detection NEGATIVE [facility] This lab was ordered by [facility] a nd reported by [facility]. ID Date Data Source [id number] 06/30/2021 12:00:00 AM EDT [facility] Name Value Range Interpretation Code Description Data Nelsy rce(s) Supporting Document(s) SARS-CoV2 Rapid Antigen Negative [facility] This lab was ordered by [facility] and reported by [facility]. ID Date Data Source [id number] 03/19/2021 09:35:00 AM EDT [facility] Name Value Range Interpretation Code Description Data Nelsy rce(s) Supporting Document(s) SARS coronavirus 2 RNA Not Detected [facility] This lab was ordered by [facility] and reported by [facility]. ID Date Data Source [id number] 01/03/2021 09:22:00 AM EST [facility] ([facility]) Name Value Range Interpretation Code Description Data Nelsy rce(s) Supporting Document(s) Trichomonas vaginalis rRNA [Presence] in Unspecified specimen by Probe and target amplification method Laboratory test result [facility] ([facility]) A negative test result does not exclude the possibility of infection because test results may be affected by improper specimen collection, technical error, sample mix-up, or because the number of organisms in the sample is below the limit of detection of the test. ID Date Data Source [id number] 01/03/2021 09:22:00 AM EST [facility] ([facility]) Name Value Range Interpretation Code Description Data Nelsy rce(s) Supporting Document(s) Bacteria identified in Urine by Culture Laboratory test result [facility] ([facility]) <content>FULL REPORT IN LAB NOTES ([facility]CW a [...] Source(s) Body height 64 [in_i] 64 [in_i] [facility]) 5'4" Body mass index (BMI) [Ratio] 27.5 kg/m2 27.5 k g/m2 [facility] ([facility], [facility]) Systolic blood pressure 113 mm[Hg] 113 mm[Hg] [facility] ([facility], [facility]) Diastolic blood pressure 75 mm[Hg] 75 mm[Hg] [facility] ([facility], [facility]) Heart rate 86 /min 86 /min [facility] ([facility], [facility]) Respiratory rate 14 /min 14 /min [facility] ( [facility], [facility]) Oxygen saturation in Arterial blood by Pulse oximetry 98 % 98 % [facility] ([facility]) Body temperature 97.7 [degF] 97.7 [degF] [facility] ([facility], [facility]) Body weight 160.00 [lb_av] 160.00 [lb_av] [facility] ([facility], [facility]) Respiratory rate 16 /min 16 /min [facility] ( [facility], [facility]) Oxygen saturation in Arterial blood by Pulse oximetry 99 % 99 % [facility] ([facility], [facility]) Body temperature 98.6 [degF] 98.6 [degF] [facility] ([facility], [facility]) Body weight 160.00 [lb_av] 160.00 [lb_av] [facility] ([facility], [facility]) Body height 64 [in_i] 64 [in_i] [facility] ([facility], [facility]) 5'4" Body mass index (BMI) [Ratio] 27.5 kg/m2 27.5 k g/m2 [facility] ([facility], [facility]) Systolic blood pressure 110 mm[Hg] 110 mm[Hg] [facility] ([facility], [facility]) Diastolic blood pressure 68 mm[Hg] 68 mm[Hg] [facility] ([facility], [facility]) Heart rate 78 /min 78 /min [facility] ([facility], [facility])
[2021-08-23] MEDS ORDERED: ACETAMINOPHEN TAB 650MG DOSE (2X325MG) PO ONE (21:15)
[2021-08-23] MEDS ORDERED: NS 1,000 ML IV ONE (21:15)
--- OUTSIDE RECORDS SUMMARY | 2021-08-23 21:26 | CCD ---
Author Author [facility] Organization [facility] Address Unknown Phone Unavailable Care Team Providers Care Application Operations Engineer Name Role Phone ROSE, Lise HOOKS Unavailable [...] Unavailable LETTIERE, Lise ARROYO PA Unavailable Unavailable Garcia, Veronica HOOKS Unavailable Unavailable GraciaVeronica Unavailable Unavailable [...] is protected by Article 27-F of the [facility] Public Health law. If you continue you may have access to information: Regarding HIV / AIDS; Provided by facilities licensed or operated by the [facility] Office of Mental Health; or Provided by the [facility] Office for People With Developmental Disabilities. If such information is present, then the following [facility] mandated warning applies: This information has [...] law may result in a fine or custodial sentence or both. A general authorization for the release of medical or other information is NOT sufficient authorization for further disc losure. Encounters Encounter Providers Location Date Indications Data Source(s ) Outpatient Attender: DINA Moses Prim rajni 01/03/2021 07:45:00 AM EST [facility] ([facility], [facility]) Outpatient Attender: Nasrin Moses Prim rajni 12/20/2020 04:40:00 PM EST [facility] ([facility], [facility]) Medications Medication Brand Name Start Date Product Form Dose Route Admi nistrative Instructions Pharmacy Instructions Status Indications Reaction Description Data Source(s) Cephalexin 500 MG Oral Tablet Cephalexin 01/05/2021 12:00:00 AM EST ORAL completed [facility] ([facility], [facility]) Insurance Providers Payer name Policy type / Coverage type Policy ID Covered republican ID Covered republican's relationship to roberson Policy [place] Plan Information [facility] ACTIVE DUTY [id number] SP [id number] [employer] [facility] REG O [id number] S [id number] Problems, Conditions, and Diagnoses No Information Surgeries/Procedures Procedure Description Date Indications Data Source(s) OFFICE OUTPATIENT VISIT 15 MINUTES 01/03/2021 12:00:00 AM EST [facility] ([facility], [facility]) Results ID Date Data Source [id number] 08/20/2021 04:28:00 PM EDT [facility] Name Value Range Interpretation Code Description Data Nelsy rce(s) Supporting Document(s) SARS coronavirus 2 RNA [Presence] in Res piratory specimen by ELISABETH with probe detection NEGATIVE [facility] This lab was ordered by [facility] a nd reported by [facility]. ID Date Data Source [id number] 06/30/2021 12:00:00 AM EDT [facility] Name Value Range Interpretation Code Description Data Nelsy rce(s) Supporting Document(s) SARS-CoV2 Rapid Antigen Negative [facility] This lab was ordered by [facility] and reported by [facility]. ID Date Data Source [id number] 03/19/2021 09:35:00 AM EDT [facility] Name Value Range Interpretation Code Description Data Nelsy rce(s) Supporting Document(s) SARS coronavirus 2 RNA Not Detected [facility] [place] This lab was ordered by [facility] and reported by [facility]. ID Date Data Source [id number] 01/03/2021 09:22:00 AM EST [facility] ([facility]) Name Value Range Interpretation Code Description Data Nelsy rce(s) Supporting Document(s) Trichomonas vaginalis rRNA [Presence] in Unspecified specimen by Probe and target amplification method Laboratory test result [facility] ([facility]) A negative test result does not exclude the possibility of infection because test results may be affected by improper specimen collection, technical error, sample mix-up, or because the number of organisms in the sample is below the limit of detection of the test. ID Date Data Source [id number] 01/03/2021 09:22:00 AM EST [facility] ([facility]) Name Value Range Interpretation Code Description Data Nelsy rce(s) Supporting Document(s) Bacteria identified in Urine by Culture Laboratory test result [facility] ([facility]) <content>FULL REPORT IN LAB NOTES (eCW [...] Source(s) Body height 64 [in_i] 64 [in_i] [facility]) 5'4" Body mass index (BMI) [Ratio] 27.5 kg/m2 27.5 k g/m2 [facility] ([facility], [facility]) Systolic blood pressure 113 mm[Hg] 113 mm[Hg] [facility] ([facility], [facility]) Diastolic blood pressure 75 mm[Hg] 75 mm[Hg] [facility] ([facility], [facility]) Heart rate 86 /min 86 /min [facility] ([facility], [facility]) Respiratory rate 14 /min 14 /min [facility] ( [facility], [facility]) Oxygen saturation in Arterial blood by Pulse oximetry 98 % 98 % [facility] ([facility]) Body temperature 97.7 [degF] 97.7 [degF] [facility] ([facility], [facility]) Body weight 160.00 [lb_av] 160.00 [lb_av] [facility] ([facility], [facility]) Respiratory rate 16 /min 16 /min [facility] ( [facility], [facility]) Oxygen saturation in Arterial blood by Pulse oximetry 99 % 99 % [facility] ([facility], [facility]) Body temperature 98.6 [degF] 98.6 [degF] [facility] ([facility], [facility]) Body weight 160.00 [lb_av] 160.00 [lb_av] [facility] T ([facility], [facility]) Body height 64 [in_i] 64 [in_i] [facility] ([facility], [facility]) 5'4" Body mass index (BMI) [Ratio] 27.5 kg/m2 27.5 k g/m2 [facility] ([facility], [facility]) Systolic blood pressure 110 mm[Hg] 110 mm[Hg] [facility] ([facility], [facility]) Diastolic blood pressure 68 mm[Hg] 68 mm[Hg] [facility] ([facility], [facility]) Heart rate 78 /min 78 /min [facility] ([facility], [facility])
[2021-08-23 22:14] LABS: BASO % 0.3 % (0.0-1.0); EOS # 0.1 10^3/uL (0.0-0.5); EOS % 0.7 % (0.0-3.0); HEMOGLOBIN 11.3 g/dl (12.0-15.5); LYMPH # 1.6 10^3/uL (1.5-5.0); LYMPH % 18.7 % (24.0-44.0); MEAN CORPUSCULAR HEMOGLOBIN 25.7 pg (27.0-33.0); MEAN CORPUSCULAR HGB CONC 32.3 g/dl (32.0-36.5); MEAN CORPUSCULAR VOLUME 79.7 fl (80.0-96.0); MONO # 0.7 10^3/uL (0.0-0.8); MONO % 7.5 % (2.0-8.0); NEUTROPHILS # 6.2 10^3/uL (1.5-8.5); NEUTROPHILS % 72.1 % (36.0-66.0); PLATELET COUNT, AUTOMATED 284 10^3/uL (150-450); RED BLOOD COUNT 4.39 10^6/uL (4.00-5.40); WHITE BLOOD COUNT 8.7 10^3/uL (4.0-10.0)
[2021-08-23 22:39] LABS: BLOOD UREA NITROGEN 6 MG/DL (7-18); C REACTIVE PROTEIN QUANTITATIV 9.58 MG/DL (0.00-0.30); CALCIUM LEVEL 8.9 MG/DL (8.5-10.1); CARBON DIOXIDE LEVEL 25 MEQ/L (21-32); CHLORIDE LEVEL 106 MEQ/L (98-107); CREATININE FOR GFR 0.71 MG/DL (0.55-1.30); GLOMERULAR FILTRATION RATE > 60.0 (>60); GLUCOSE, FASTING 80 MG/DL (70-100); POTASSIUM SERUM 3.6 MEQ/L (3.5-5.1); SODIUM LEVEL 138 MEQ/L (136-145)
[2021-08-23 22:46] LABS: RSV AMPLIFICATION NEGATIVE (NEGATIVE)
--- NOTE | 2021-08-23 23:29 | REPVR ---
PROCEDURE INFORMATION: Exam: US Nonobstetric Pelvis; Complete Exam date and time: 08/23/2021 9:53 PM Age: 25 years old Clinical indication: Pelvic pain; Additional info: Abd pain, fever, recent delivery, eval for rpoc TECHNIQUE: Imaging protocol: Transabdominal pelvic nonobstetric ultrasound. Complete exam. Real time ultrasound with image documentation. COMPARISON: No relevant prior studies available. FINDINGS: GESTATION: Gestation: No intrauterine gestation is present. No convincing evidence of retained products 2nd session. Uterus/cervix: Uterus measures 17.5 x 8.2 x 12.6 cm. Endometrium measures 13 mm. Right adnexa: Right ovary measures 2.3 x 1.4 x 2.2 cm. Suspect right paraovarian cyst measuring 2.1 cm. Right ovary appears within normal limits. Left adnexa: Left ovary measures 3.0 x 1.4 x 2.2 cm. Left ovary appears within normal limits. Intraperitoneal space: No intraperitoneal fluid. Urinary bladder: Normal. IMPRESSION: No evidence of retained products of conception. Electronically signed by: Julian Nesbitt On 08/23/2021 23:28:53 PM
[2021-08-23 23:48] LABS: GC DNA AMPLIFICATION NEGATIVE (NEGATIVE)
[2021-08-24] MEDS ORDERED: PROHANCE 279.3MG/ML 5ML VIAL As Ordered ONE (01:24)
[2021-08-24] MEDS ORDERED: PROHANCE 279.3MG/ML 15ML VIAL As Ordered ONE (01:25)
--- NOTE | 2021-08-24 02:03 | REPVR ---
PROCEDURE INFORMATION: Exam: MR Lumbar Spine Without and With Contrast Exam date and time: 08/24/2021 1:47 AM Age: 25 years old Clinical indication: Other: Fever, urinary incontinence, recent epidural, R/O abscess TECHNIQUE: Imaging protocol: Multiplanar magnetic resonance images of the lumbar spine without and with intravenous contrast. Contrast material: PROHANCE; Contrast volume: 17 ml; Contrast route: INTRAVENOUS (IV); COMPARISON: US PELVIC NON-OB COMPLETE 08/23/2021 9:41 PM FINDINGS: Vertebral body height and AP alignment is preserved. Negative for discitis/osteomyelitis. No epidural fluid collection. Conus medullaris terminates at T12-L1. No pathologic intrathecal enhancement. L1-L2: Unremarkable. L2-L3: Unremarkable. L3-L4: Unremarkable. L4-L5: Unremarkable. L5-S1: Unremarkable. IMPRESSION: 1. No acute abnormality involving the lumbar spine. 2. Widely patent central canal. Electronically signed by: Julian Nesbitt On 08/24/2021 02:03:22 AM
[2021-08-24] MEDS ORDERED: CLINDAMYCIN 900 MG in IV 1 EA IV ONE (02:40)
[2021-08-24] MEDS ORDERED: GENTAMICIN IV ONE (03:00)
[2021-08-24] MEDS ORDERED: D5W IV ONE (03:00)
[2021-08-24] MEDS ORDERED: HOME MED LIST COMPLETE! XX SCH (03:15)
[2021-08-24] MEDS ORDERED: ACETAMINOPHEN TAB 650MG DOSE (2X325MG) PO PRN (03:50)
--- NOTE | 2021-08-24 04:17 | IPNPDOC ---
Text Note Date of Service The patient was seen on 08/24/21. NOTE H&P Patito Gutierrez is a 25yo now day #4 admitted this morning 24AUG2021 for endometritis. She had been discharged the morning of the after an uncomplicated vaginal delivery. She was at [facility] in the afternoon and developed shaking chills; she went home and slept for 2 hours. She then took her temperature and it was 102 F. She then came to the ED where her initial vitals were T 100.7, P 106, R 18, BP 140/71, spO2 97% on Room Air. Her exam was notable only for midline abdominal tenderness. A pelvic ultrasound revealed no retained products of conception. She was given one dose of tylenol. I was consulted by the ED physician and recommended Clindamycin and Gentamicin. MedHx: GERD SurgHx: denies Meds: tylenol, PNV Allergies: denies When I arrived in the ED she denied f/c/cp/sob/uri symptoms/dysuria/hematuria. She endorsed a greenish vaginal discharge earlier in the day and urinary incontinence upon standing. 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 Will continue clindamycin 900mg q8h and gentamicin 5mg/kg q24h until 24 hours afebrile, then observe for 24 hours off antibiotics for fevers/symptom return. If still febrile after 24 hours will reevaluate antibiotic coverage. Will follow urine culture. Admit to med-surg; L&D and mother-baby currently at capacity. Camron Humphreys, VS,Danial, I+O VS, Danial, I+O Laboratory Tests 08/23/21 21:37 Vital Signs Date Time Temp Pulse Resp B/P (MAP) Pulse Ox O2 Delivery O2 Flow Rate FiO2 08/24/21 00:49 98.0 82 18 136/85 (102) 97 Room Air I&O- Last 24 Hours up to 6 AM 08/24/21 06:00 Intake Total 1000 ml Balance 1000 ml CAMRON HUMPHREYS DO Aug 24, 2021 04:17
--- OUTSIDE RECORDS SUMMARY | 2021-08-24 04:20 | CCD ---
Author Author [facility] Organization [facility] Address Unknown Phone Unavailable Care Team Providers Care Supervisor Asbestos Removal Name Role Phone ROSE, Lise HOOKS Unavailable [...] law may result in a fine or prison sentence or both. A general authorization for the release of medical or other information is NOT sufficient authorization for further disc losure. Encounters Encounter Providers Location Date Indications Data Source(s ) Outpatient Attender: DINA Moses Prim rajni [facility]/03/[facility] 07:45:00 [facility] Outpatient Attender: Nasrin Moses Prim rajni 12/20/2020 04:40:00 PM EST [facility] ([facility], [facility]) Medications Medication Brand Name Start Date Product Form Dose Route Admi nistrative Instructions Pharmacy Instructions Status Indications Reaction Description Data Source(s) Cephalexin 500 MG Oral Tablet Cephalexin 01/05/2021 12:00:00 AM EST ORAL completed [facility] ([facility], [facility]) Insurance Providers Payer name Policy type / Coverage type Policy ID Covered republican ID Covered republican's relationship to roberson Policy [place] Plan Information [facility] ACTIVE DUTY [id number] SP [id number] [employer] [facility] REG O [id number] S [id number] Problems, Conditions, and Diagnoses No Information Surgeries/Procedures Procedure Description Date Indications Data Source(s) OFFICE OUTPATIENT VISIT 15 MINUTES 01/03/2021 12:00:00 AM EST [facility] ([facility], [facility]) Results ID Date Data Source [id number] 08/20/2021 04:28:00 PM EDT [facility] Name Value Range Interpretation Code Description Data Nelsy rce(s) Supporting Document(s) SARS coronavirus 2 RNA [Presence] in Res piratory specimen by ELISABETH with probe detection NEGATIVE [facility] This lab was ordered by [facility] a nd reported by [facility]. ID Date Data Source [id number] 06/30/2021 12:00:00 AM EDT [facility] Name Value Range Interpretation Code Description Data Nelsy rce(s) Supporting Document(s) SARS-CoV2 Rapid Antigen Negative [facility] This lab was ordered by [facility] and reported by [facility]. ID Date Data Source [id number] 03/19/2021 09:35:00 AM EDT [facility] Name Value Range Interpretation Code Description Data Nelsy rce(s) Supporting Document(s) SARS coronavirus 2 RNA Not Detected [facility] This lab was ordered by [facility] and reported by [facility]. ID Date Data Source [id number] 01/03/2021 09:22:00 AM EST [facility] ([facility]) Name Value Range Interpretation Code Description Data Nelsy rce(s) Supporting Document(s) Trichomonas vaginalis rRNA [Presence] in Unspecified specimen by Probe and target amplification method Laboratory test result [facility] ([facility]) A negative test result does not exclude the possibility of infection because test results may be affected by improper specimen collection, technical error, sample mix-up, or because the number of organisms in the sample is below the limit of detection of the test. ID Date Data Source [id number] 01/03/2021 09:22:00 AM EST [facility] ([facility]) Name Value Range Interpretation Code Description Data Nelsy rce(s) Supporting Document(s) Bacteria identified in Urine by Culture Laboratory test result [facility] ([facility]) <content>FULL REPORT IN LAB NOTES [...] Range Interpretation Code Description Data Source(s) Body mass index (BMI) [Ratio] 27.5 kg/m2 27.5 k g/m2 [facility] ([facility]) Body height 64 [in_i] 64 [in_i] [facility]) 5'4" Systolic blood pressure 113 mm[Hg] 113 mm[Hg] M [facility] ([facility]) Diastolic blood pressure 75 mm[Hg] 75 mm[Hg] [facility] ([facility]) Heart rate 86 /min 86 /min [facility] ([facility]) Respiratory rate 14 /min 14 /min [facility] ( [facility]) Oxygen saturation in Arterial blood by Pulse oximetry 98 % 98 % [facility] ([facility]) Body temperature 97.7 [degF] 97.7 [degF] [facility] ([facility], [facility]) Body weight 160.00 [lb_av] 160.00 [lb_av] [facility] T ([facility], [facility]) Respiratory rate 16 /min 16 /min [facility] ( [facility], [facility]) Oxygen saturation in Arterial blood by Pulse oximetry 99 % 99 % [facility] ([facility], [facility]) Body temperature 98.6 [degF] 98.6 [degF] [facility]) Body weight 160.00 [lb_av] 160.00 [lb_av] [facility] T ([facility], [facility]) Body height 64 [in_i] 64 [in_i] [facility] ([facility], [facility]) 5'4" Body mass index (BMI) [Ratio] 27.5 kg/m2 27.5 k g/m2 [facility] ([facility], [facility]) Heart rate 78 /min 78 /min [facility] ([facility], [facility]) Systolic blood pressure 110 mm[Hg] 110 mm[Hg] [facility] ([facility], [facility]) Diastolic blood pressure 68 mm[Hg] 68 mm[Hg] [facility] ([facility], [facility])
[2021-08-24 05:20] VITALS: BP 131/85
[2021-08-24] MEDS: LR 1,000 ML IV SCH ×3 (06:23→15:58)
[2021-08-24] MEDS: CLINDAMYCIN 900 MG in IV 1 EA IV SCH ×2 (13:01→20:41)
[2021-08-24 13:40] VITALS: BP 143/93
[2021-08-24 16:00] VITALS: BP 132/92
[2021-08-24 20:00] VITALS: BP 138/70
[2021-08-24] MEDS: IBUPROFEN 600MG TAB PO PRN (20:41)
[2021-08-25 00:26] VITALS: BP 131/70
[2021-08-25] MEDS: LR 1,000 ML IV SCH ×2 (00:41→08:03)
[2021-08-25] MEDS: IBUPROFEN 600MG TAB PO PRN (04:00)
[2021-08-25 04:08] VITALS: BP 125/75
--- NOTE | 2021-08-25 06:22 | IPNPDOC ---
Text Note Date of Service The patient was seen on 08/25/21. NOTE Patito Gutierrez is a 25yo now day #5 admitted yesterday morning 24AUG2021 for endometritis. She had been discharged the morning of after an uncomplicated vaginal delivery. She was at [facility] in the afternoon and developed shaking chills; she went home and slept for 2 hours. She then took her temperature and it was 102 F. She then came to the ED where her initial vitals were T 100.7, P 106, R 18, BP 140/71, spO2 97% on Room Air. Her exam was notable only for midline abdominal tenderness. A pelvic ultrasound revealed no retained products of conception. She was given one dose of tylenol. I was consulted by the ED physician and recommended Clindamycin and Gentamicin with admission. Since then she has been afebrile and antibiotics were discontinued early 25AUG2021; around 0500. She reports that she feels much better and that her uterine tenderness has decreased and she denies fevers/chills/vaginal discharge. She has no complaints this morning. MedHx: GERD SurgHx: denies Meds: tylenol, PNV Allergies: denies Vitals reviewed and within normal limits. a&o x3 nonlabored breathing abd soft, nontender, nondistended negative calf tenderness bilaterally, [place] hose in place a/p as above with endometritis now hospital day #2, doing well now off antibiotics. The plan is to observe for 24 hours and watch for recurrence of fever. If remains afebrile 24 hours then can discharge with no additional antibiotics. Encouraged ambulation while inpatient. All questions answered and patient indicated understanding. Camron Humphreys DO VS,Danial, I+O VS, Danial, I+O Vital Signs Date Time Temp Pulse Resp B/P (MAP) Pulse Ox O2 Delivery O2 Flow Rate FiO2 08/25/21 04:08 98.1 75 18 125/75 (92) 98 Room Air I&O- Last 24 Hours up to 6 AM 08/25/21 05:59 Intake Total 2490 ml Output Total 1950 ml Balance 540 ml CAMRON HUMPHREYS DO Aug 25, 2021 06:22
[2021-08-25 07:49] VITALS: BP 134/91
[2021-08-25 08:09] LABS: HEMATOCRIT 33.1 % (36.0-47.0); HEMOGLOBIN 10.7 g/dl (12.0-15.5); MEAN CORPUSCULAR HEMOGLOBIN 25.8 pg (27.0-33.0); MEAN CORPUSCULAR HGB CONC 32.3 g/dl (32.0-36.5); PLATELET COUNT, AUTOMATED 234 10^3/uL (150-450); RED BLOOD COUNT 4.14 10^6/uL (4.00-5.40); WHITE BLOOD COUNT 7.9 10^3/uL (4.0-10.0)
[2021-08-25 08:34] LABS: ALBUMIN 2.2 GM/DL (3.2-5.2); ALT/SGPT 20 U/L (12-78); BILIRUBIN,TOTAL 0.1 MG/DL (0.2-1.0); BLOOD UREA NITROGEN 6 MG/DL (7-18); CALCIUM LEVEL 8.7 MG/DL (8.5-10.1); CARBON DIOXIDE LEVEL 25 MEQ/L (21-32); CHLORIDE LEVEL 110 MEQ/L (98-107); CREATININE FOR GFR 0.53 MG/DL (0.55-1.30); GLOMERULAR FILTRATION RATE > 60.0 (>60); GLUCOSE, FASTING 75 MG/DL (70-100); POTASSIUM SERUM 3.8 MEQ/L (3.5-5.1); SODIUM LEVEL 141 MEQ/L (136-145)
[2021-08-25 12:00] VITALS: BP 143/93
[2021-08-25 15:55] VITALS: BP 142/85
== END 2021-08-25 18:56 | disposition left against medical advice (07) | DRG 776 ==
LOC: M ED 20:23 → M ED INP 08-24 03:47 → M MSPAV 08-24 05:12 → M PED 08-24 13:23
PROVIDERS: ADMIT Obstetrics & Gynecology; ATTEND Obstetrics & Gynecology
DX: O86.12 Endometritis following delivery (principal)

== ENCOUNTER → 2022-01-16 | Outpatient (CLI) | payer OTHER | LOC: M WHC 10:05 | PROVIDERS: ATTEND Physician Assistant | DX: N64.4 Mastodynia (principal); N64.59 Other signs and symptoms in breast ==

== ENCOUNTER → 2022-03-31 | Outpatient (REF) | payer OTHER | LOC: M LAB REF 16:17 | PROVIDERS: ATTEND Physician Assistant Medical | DX: R30.0 Dysuria (principal) ==

== ENCOUNTER 2022-09-14 09:52 | Outpatient (CLI) | payer OTHER ==
[~2022-09-14] VITALS: Ht 162.6 cm; Wt 91.6 kg
[~2022-09-14 09:52] MED LIST changes: +FLUCONAZOLE 50MG TABLET PO SCH
[2022-09-14 10:31] VITALS: BP 134/75
[2022-09-14] MEDS ORDERED: ASPI81CH33 PO (10:35)
[2022-09-14] MEDS ORDERED: FAMO10TA50 PO (10:35)
[2022-09-14] MEDS ORDERED: HOME MED LIST COMPLETE! XX SCH (10:40)
[2022-09-14 11:26] VITALS: BP 149/85
[2022-09-14 12:16] VITALS: BP 146/74
[2022-09-14 12:39] LABS: APPEARANCE, URINE MANUAL HAZY (CLEAR); BILIRUBIN, URINE MANUAL NEGATIVE (NEGATIVE); BLOOD URINE MANUAL NEGATIVE (NEGATIVE); COLOR, URINE MANUAL LT YELLOW (YELLOW); GLUCOSE, URINE (UA) MANUAL NEGATIVE (NEGATIVE); KETONE, URINE MANUAL NEGATIVE (NEGATIVE); LEUKOCYTE ESTERASE, URINE MAN POSITIVE (NEGATIVE); NITRITE, URINE MANUAL POSITIVE (NEGATIVE); PROTEIN, URINE MANUAL TRACE mg/dL (NEGATIVE); UROBILINOGEN, URINE MANUAL NORMAL (NORMAL)
[2022-09-14 13:11] LABS: AMORPHOUS SEDIMENT, URINE MOD AMOUNT (NEGATIVE); BACTERIA, URINE LARGE AMOUNT; HYALINE CAST, URINE NONE SEEN /lpf (0-1); SQUAMOUS EPITHELIAL CELL URINE LARGE AMOUNT /hpf (SMALL AMT)
[2022-09-14 13:26] VITALS: BP 135/65
== END 2022-09-14 13:35 | disposition home or self-care (01) ==
LOC: M LDO 09:52
PROVIDERS: ATTEND Advanced Practice Midwife
DX: O26.893 Other specified pregnancy related conditions, third trimester (principal); R10.30 Lower abdominal pain, unspecified; O36.8121 Decreased fetal movements, second trimester, fetus 1; O36.8122 Decreased fetal movements, second trimester, fetus 2; O23.593 Infection of other part of genital tract in pregnancy, third trimester; O30.033 Twin pregnancy, monochorionic/diamniotic, third trimester; Z3A.28 28 weeks gestation of pregnancy
CPT/HCPCS: 59025; 81000; 87088; 87186; G0378; G0463

== ENCOUNTER 2022-10-20 12:48 | Outpatient (CLI) | payer OTHER ==
[~2022-10-20] VITALS: Ht 162.6 cm; Wt 91.9 kg
[~2022-10-20 12:48] MED LIST changes: +ASPI81CH33 PO; +FAMO10TA50 PO; -FLUCONAZOLE 50MG TABLET PO SCH
[2022-10-20] MEDS ORDERED: LACTATED RINGER'S 1000 ML IV STA (12:59)
[2022-10-20] MEDS ORDERED: BETAMETHASONE SOLUSPAN 6MG/ML 5ML VIAL (J0702 PER 3MG) IM SCH (13:00)
[2022-10-20] MEDS ORDERED: HOME MED LIST COMPLETE! XX SCH (13:15)
[2022-10-20 14:13] VITALS: BP 136/74
== END 2022-10-20 16:20 | disposition home or self-care (01) ==
LOC: M LDO 12:48
PROVIDERS: ATTEND Advanced Practice Midwife
DX: O30.033 Twin pregnancy, monochorionic/diamniotic, third trimester (principal); Z3A.33 33 weeks gestation of pregnancy; O60.03 Preterm labor without delivery, third trimester
CPT/HCPCS: 59025; G0378; G0463; J0702

== ENCOUNTER 2022-10-29 15:13 | Outpatient (CLI) | payer OTHER ==
[~2022-10-29] VITALS: Ht 162.6 cm; Wt 92.8 kg
[2022-10-29 15:43] VITALS: BP 120/62
[2022-10-29] MEDS ORDERED: OMEP10CASR PO (15:50)
[2022-10-29] MEDS ORDERED: TUMS500C PO (15:50)
[2022-10-29] MEDS ORDERED: HOME MED LIST COMPLETE! XX SCH (15:50)
[2022-10-30] MEDS ORDERED: FERR325T3 PO (13:26)
[2022-10-30] MEDS ORDERED: VITA500C24 PO (13:26)
== END 2022-10-29 17:37 | disposition home or self-care (01) ==
LOC: M LDO 15:13 → UNDOADMIN 15:13 → M LDI 15:13 → M LDO 17:37 → UNDODISIN 17:37 → EDSTATUS 11-19 14:53
PROVIDERS: ATTEND Registered Nurse
DX: O30.033 Twin pregnancy, monochorionic/diamniotic, third trimester (principal); O47.03 False labor before 37 completed weeks of gestation, third trimester; O36.5931 Maternal care for other known or suspected poor fetal growth, third trimester, fetus 1; Z3A.34 34 weeks gestation of pregnancy; Z79.82 Long term (current) use of aspirin; Z79.899 Other long term (current) drug therapy
CPT/HCPCS: 59025; G0378; G0463

== ENCOUNTER 2022-10-30 05:11 | Inpatient (IN) | payer OTHER ==
[~2022-10-30] VITALS: Ht 165.1 cm; Wt 92.3 kg
[2022-10-30] VITALS (8 sets, daily range): BP systolic 108–139; BP diastolic 55–75
[~2022-10-30 05:11] MED LIST changes: +OMEP10CASR PO; +TUMS500C PO
[2022-10-30] MEDS ORDERED: LACTATED RINGER'S 1000 ML IV STA (05:29)
[2022-10-30] MEDS ORDERED: BICITRA 30ML SOLN UDC PO ONE (05:30)
[2022-10-30] MEDS ORDERED: ceFAZolin SOD 2 GM in IV 1 EA IV ONE (05:30)
[2022-10-30 06:43] LABS: HEMATOCRIT 28.2 % (36.0-47.0); HEMOGLOBIN 8.5 g/dl (12.0-15.5); MEAN CORPUSCULAR HEMOGLOBIN 22.8 pg (27.0-33.0); MEAN CORPUSCULAR HGB CONC 30.1 g/dl (32.0-36.5); MEAN CORPUSCULAR VOLUME 75.8 fl (80.0-96.0); PLATELET COUNT, AUTOMATED 211 10^3/uL (150-450); RED BLOOD COUNT 3.72 10^6/uL (4.00-5.40); WHITE BLOOD COUNT 9.4 10^3/uL (4.0-10.0)
[2022-10-30] MEDS: LR 1,000 ML IV SCH ×2 (07:07→07:36)
[2022-10-30] MEDS ORDERED: PHENYLephrine 500MCG 5ML (100MCG/ML) SYRINGE As Ordered ONE (07:14)
[2022-10-30] MEDS ORDERED: ePHEDrine SULFATE 25 MG/5 ML(5MG/ML) SYRINGE As Ordered ONE (07:14)
[2022-10-30] MEDS ORDERED: MORPHINE PRES-FREE INJ 10 MG/10 ML VIAL As Ordered ONE (07:15)
[2022-10-30] MEDS ORDERED: OXYTOCIN 30UNITS IN 0.9% NaCl 500ML IV BAG As Ordered ONE ×2 (07:15→12:54)
[2022-10-30] MEDS ORDERED: CARBOPROST TROMETHAMINE 250 MCG/ML AMP IM PRN (08:15)
[2022-10-30] MEDS ORDERED: TRANEXAMIC ACID INJection 1,000 MG in NS 100 ML IV PRN (08:15)
[2022-10-30] MEDS ORDERED: METHYLERGONOVINE MALEATE 0.2 MG/ML VIAL (J2210) IM PRN (08:15)
[2022-10-30] MEDS ORDERED: OXYTOCIN DRIP 30 UNITS in IV 1 EA IV PRN ×6 (08:15)
[2022-10-30] MEDS ORDERED: OXYTOCIN INJ 10UNITS/ML 1ML VIAL IM PRN (08:15)
[2022-10-30] MEDS ORDERED: LIDOCAINE 1% MDV 20ML VIAL INFIL PRN (08:15)
[2022-10-30] MEDS ORDERED: OXYTOCIN INJ 10UNITS/ML 1ML VIAL IV PRN (08:15)
[2022-10-30] MEDS ORDERED: ONDANSETRON 4MG 2ML VIAL As Ordered ONE (12:01)
[2022-10-30] MEDS ORDERED: KETOROLAC 60MG 2ML VIAL As Ordered ONE (12:01)
[2022-10-30] MEDS ORDERED: RHOGAM 300MCG (1500IU) INJ IM SCH (12:45)
[2022-10-30] MEDS ORDERED: oxyCODONE 5MG TAB PO PRN ×2 (12:45→13:10)
[2022-10-30] MEDS ORDERED: OXYTOCIN DRIP 30 UNITS in IV 1 EA IV SCH (12:45)
[2022-10-30] MEDS ORDERED: MOM 30ML SUSPENSION UDC PO PRN (12:45)
[2022-10-30] MEDS ORDERED: SIMETHICONE 80MG CHEW TAB PO PRN (12:45)
[2022-10-30] MEDS ORDERED: PROMETHAZINE 25 MG TAB PO PRN (12:45)
[2022-10-30] MEDS ORDERED: **NOTE PATIENT COMMENT** MISC XX SCH (13:10)
[2022-10-30] MEDS ORDERED: METOCLOPRAMIDE INJ 10MG/2ML VIAL IV PRN (13:10)
[2022-10-30] MEDS: SLF 3 ML SYR IV SCH ×2 (13:10→20:52)
[2022-10-30] MEDS ORDERED: NALOXONE INJ 0.4MG/1ML VIAL IV PRN ×2 (13:10)
[2022-10-30] MEDS ORDERED: HOME MED LIST COMPLETE! XX SCH (13:10)
[2022-10-30] MEDS ORDERED: ONDANSETRON 4MG 2ML VIAL IV PRN (13:10)
[2022-10-30] MEDS ORDERED: diphenhydrAMINE 50MG/ML VIAL IV PRN (13:10)
[2022-10-30] MEDS ORDERED: fentaNYL 100 MCG/2 ML INJECTION IV PRN (13:10)
[2022-10-30 13:26] LABS: CORD GAS ABE A -3.2; CORD GAS HCO3 A 23.8 MEQ/L; CORD GAS O2 SAT A 32.9 %; CORD GAS PH A 7.296 UNITS; CORD GAS PO2 A 16.9 mmHg; CORD GAS SBC A 20.2 MEQ/L; CORD GAS TCO2 A 25.4 MEQ/L
[2022-10-30] MEDS ORDERED: FERR325T3 PO (13:26)
[2022-10-30] MEDS ORDERED: VITA500C24 PO (13:26)
[2022-10-30 13:28] LABS: CORD GAS ABE V -1.5; CORD GAS O2 SAT V 74.4 %; CORD GAS PH V 7.399 UNITS; CORD GAS PO2 V 29.5 mmHg; CORD GAS SBC V 22.7 MEQ/L; CORD GAS TCO2 V 24.1 MEQ/L
[2022-10-30 13:30] LABS: CORD GAS ABE V -4.5; CORD GAS HCO3 V 19.9 MEQ/L; CORD GAS O2 SAT V 87.2 %; CORD GAS PH V 7.373 UNITS; CORD GAS PO2 V 39.9 mmHg; CORD GAS SBC V 20.6 MEQ/L
[2022-10-30] MEDS: DOCUSATE SODIUM 100MG CAPSULE PO SCH (19:53)
[2022-10-30] MEDS: KETOROLAC 30 MG/ML 1ML VIAL IV SCH (19:54)
[2022-10-31] MEDS: KETOROLAC 30 MG/ML 1ML VIAL IV SCH ×2 (01:14→07:09)
[2022-10-31] MEDS: SLF 3 ML SYR IV SCH (05:10)
[2022-10-31 06:00] VITALS: BP 132/62
[2022-10-31] MEDS: DOCUSATE SODIUM 100MG CAPSULE PO SCH ×2 (08:02→21:40)
[2022-10-31] MEDS: PRENATAL VITAMINS CHEWABLE TABLET PO SCH (08:02)
[2022-10-31 08:13] LABS: HEMATOCRIT 25.8 % (36.0-47.0); HEMOGLOBIN 7.8 g/dl (12.0-15.5); MEAN CORPUSCULAR HEMOGLOBIN 22.7 pg (27.0-33.0); MEAN CORPUSCULAR HGB CONC 30.2 g/dl (32.0-36.5); MEAN CORPUSCULAR VOLUME 75.2 fl (80.0-96.0); PLATELET COUNT, AUTOMATED 184 10^3/uL (150-450); RED BLOOD COUNT 3.43 10^6/uL (4.00-5.40); WHITE BLOOD COUNT 12.3 10^3/uL (4.0-10.0)
[2022-10-31 10:00] VITALS: BP 114/56
[2022-10-31 14:00] VITALS: BP 137/79
[2022-10-31] MEDS: IBUPROFEN 800 MG TAB PO SCH ×2 (15:25→22:38)
[2022-10-31 18:00] VITALS: BP 135/71
[2022-10-31 22:00] VITALS: BP 131/68
[2022-11-01] MEDS: oxyCODONE 5MG TAB PO PRN ×2 (02:08→10:42)
[2022-11-01] MEDS: IBUPROFEN 800 MG TAB PO SCH (06:38)
[2022-11-01] MEDS: DOCUSATE SODIUM 100MG CAPSULE PO SCH (08:48)
[2022-11-01] MEDS: PRENATAL VITAMINS CHEWABLE TABLET PO SCH (08:48)
[2022-11-01] MEDS ORDERED: MEASLES,MUMPS,RUBELLA VACCINE INJ (MMR-II) SC.IMMUN ONE (09:00)
[2022-11-01 10:00] VITALS: BP 133/85
[2022-11-01] MEDS ORDERED: IBUP80TA PO (10:24)
== END 2022-11-01 11:06 | disposition home or self-care (01) | DRG 772 ==
LOC: M LDI 05:11 → M OBS 14:09
PROVIDERS: ADMIT Obstetrics & Gynecology; ATTEND Obstetrics & Gynecology
PROC: 10D00Z1 Extraction of Products of Conception, Low, Open Approach (ICD-10-PCS; principal; 2022-10-30 07:30)
DX: O36.5931 Maternal care for other known or suspected poor fetal growth, third trimester, fetus 1 (principal); O98.32 Other infections with a predominantly sexual mode of transmission complicating childbirth; D64.9 Anemia, unspecified; O30.033 Twin pregnancy, monochorionic/diamniotic, third trimester; A60.09 Herpesviral infection of other urogenital tract; Z3A.35 35 weeks gestation of pregnancy; O32.1XX2 Maternal care for breech presentation, fetus 2; Z37.2 Twins, both liveborn; O99.02 Anemia complicating childbirth

== ENCOUNTER → 2022-12-27 | Outpatient (REF) | payer OTHER ==
[~2022-12-27] MED LIST changes: +FERR325T3 PO; +VITA500C24 PO
[2022-12-27 18:57] LABS: APPEARANCE, URINE HAZY (CLEAR); BILIRUBIN, URINE AUTO NEGATIVE (NEGATIVE); BLOOD, URINE BLOOD NEGATIVE (NEGATIVE); COLOR, URINE YELLOW (YELLOW); GLUCOSE, URINE (UA) AUTO NEGATIVE (NEGATIVE); KETONE, URINE AUTO NEGATIVE (NEGATIVE); LEUKOCYTE ESTERASE, URINE AUTO NEGATIVE (NEGATIVE); NITRITE, URINE AUTO NEGATIVE (NEGATIVE); PROTEIN, URINE AUTO NEGATIVE (NEGATIVE); SPECIFIC GRAVITY URINE AUTO 1.023 (1.002-1.035); UROBILINOGEN, URINE AUTO 0.2 mg/dL (0.0-2.0)
[2022-12-27 18:59] LABS: AMORPHOUS SEDIMENT SMALL (NEGATIVE); BACTERIA, URINE AUTO NEGATIVE (NEGATIVE); MUCUS, URINE SMALL (NEGATIVE); RBC, URINE AUTO 1 /HPF (0-3); SQUAMOUS EPITHELIAL CELL UR AU 2 /HPF (0-6); WBC, URINE AUTO 4 /HPF (0-3)
[2022-12-27 20:22] LABS: GC DNA AMPLIFICATION NEGATIVE (NEGATIVE)
== END ==
LOC: M LAB REF 18:36
PROVIDERS: ATTEND Physician Assistant Medical
DX: N39.0 Urinary tract infection, site not specified (principal); N89.8 Other specified noninflammatory disorders of vagina; Z20.2 Contact with and (suspected) exposure to infections with a predominantly sexual mode of transmission